=== PATIENT | female | born 1970 | race Caucasian/White ===

== ENCOUNTER 2016-06-22 10:29 | Observation (INO) | payer SELFPAY ==
[2016-06-22] MEDS ORDERED: NORMAL SALINE 10 ML SYRINGE FLUSH IVP PRN ×2 (10:45→13:51)
[2016-06-22] MEDS ORDERED: Sodium Chloride 0.9% 1,000 ML PRIMARY IV ONE (10:45)
[2016-06-22] MEDS ORDERED: ASPIRIN 81 MG (BABY) CHEWABLE TABLET PO ONE (10:45)
--- NOTE | 2016-06-22 10:48 | EKG ---
[address] [address] Measurements Intervals [place] Rate: 79 P: 47 GA: 146 QRS: 38 QRSD: 80 T: 42 QT: 373 QTc: 407 Interpretive Statements SINUS RHYTHM Compared to ECG 02/19/2015 14:36:40 No significant changes Electronically Signed On 06-22-16 11:05:34 MDT by Patricio De La O MD [email or web address]
--- NOTE | 2016-06-22 11:25 | DI ---
AP CHEST X-RAY, 06/22/2016 10:45 AM : Clinical History: Chest pain. Previous Exam: 11/25/2015. There is no acute soft tissue or bony abnormality. Heart size is normal. Lungs are clear. Mediastinal structures are normal. There are no pulmonary nodules. Reading: Normal chest x-ray. There has been no change.
[2016-06-22 11:36] LABS: HEMATOCRIT 41.4 % (37.0-47.0); HEMOGLOBIN 13.9 g/dL (12.0-16.0); MEAN CORPUSCULAR HEMOGLOBIN 28.8 PG (27-31); MEAN CORPUSCULAR HGB CONC 33.6 g/dL (33-37); MEAN CORPUSCULAR VOLUME 85.9 FL (81-99); RED BLOOD COUNT 4.82 10^6/uL (4.20-5.40)
[2016-06-22 11:37] LABS: BASOPHILS # (AUTO) 0.02 10*3/UL; BASOPHILS % (AUTO) 0.4 % (0-1); EOSINOPHILS # (AUTO) 0.13 10*3/UL; EOSINOPHILS % (AUTO) 2.5 % (0-8); LYMPHOCYTES # (AUTO) 1.94 10*3/uL; MEAN PLATELET VOLUME 8.6 FL (7.4-12.2); MONOCYTES # (AUTO) 0.39 10*3/UL (0.3-0.8); MONOCYTES % (AUTO) 7.5 % (5-15); NEUTROPHILS # (AUTO) 2.69 10*3/UL; NEUTROPHILS % (AUTO) 51.9 % (50-80); PLATELET MORPHOLOGY COMMENT NORMAL MORPHOLOGY (NORM); RBC MORPHOLOGY COMMENT NORMAL MORPHOLOGY (NORM); WBC MORPHOLOGY COMMENT NORMAL MORPHOLOGY (NORM)
[2016-06-22 11:47] LABS: BLOOD UREA NITROGEN 15 mg/dL (7-22); BUN/CREATININE RATIO 18.75 (6-20); CALCIUM 8.9 mg/dL (8.7-10.7); EST GLOMERULAR FILTRATION > 60 (>60 ml/min/1.73m(2)); SERUM ALBUMIN 4.3 g/dL (3.5-4.8)
[2016-06-22 11:53] LABS: TROPONIN I < 0.012 ng/mL (< 0.040)
[2016-06-22] MEDS ORDERED: NITROGLYCERIN 0.4 MG SL ONE (12:32)
[2016-06-22] MEDS ORDERED: NITROGLYCERIN 0.4 MG SL TAB (BOTTLE OF 3) SL ONE (12:37)
[2016-06-22] MEDS ORDERED: MORPHINE SULFATE 4 MG/1 ML IVP ONE (12:39)
[2016-06-22] MEDS ORDERED: LIDOCAINE W/ SODIUM BICARB 0.5 ML SYR SUBD PRN (13:51)
--- NOTE | 2016-06-22 14:32 | PDOC ---
History and Physical - History of Present Illness Date and Time of Service: 06/22/2016 1:30 PM Chief Complaint: Chest pain that started last night History of Present Illness: This is a 45 years old female with medical history significant for history of lupus, arrhythmia unknown type on diltiazem who presented to the ER with history of chest pain that started last night felt in the middle of the chest and towards the left side, mild nausea and no shortness of breath. She said her symptoms started last night and this morning the pain persisted so she checked her blood pressure and blood pressure was elevated with diastolic at 104 and because of that she came into the ER she was given nitroglycerin in the ER and that helped her pain but she started to have headache so she was given morphine which helped her headache and she was admitted for further testing. She said she never had this chest pain before. 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 Regarding the lupus her main symptoms sounded more like to be pain in the joint and swelling but there was no rash or other general organ involvement. Past Medical History Medical History: 1. Questionable lupus, sounds more like fibromyalgia. 2. Arrhythmia nontype on diltiazem. 3. History of asthma Surgical History: 1. Cholecystectomy. 2. Hysterectomy Pertinent Family History: Father had the defibrillator/pacemaker Past Social History: Used to smoke, occasionally drink, no drugs. She is under a lot of stress, as she lost her daughter to diabetes are March and she is going to nursing school. Tobacco Use: Former Smoker Substance Use Type: None Alcohol Use: Occasionally Medication / Allergies Home Medications: Home Medications Medication Instructions Recorded Confirmed Type Albuterol Neb Soln 0.083% 1 each NEB Q4-6H PRN #1 box 05/31/14 06/22/16 Clinic Amitriptyline HCl 1 tab PO QHS #90 tab 12/02/15 06/22/16 Clinic Diltiazem HCl [Diltiazem 24hr Er] 120 mg PO QHS #90 cap 12/02/15 06/22/16 Clinic Ibuprofen 800 mg PO TID #90 tab 12/02/15 06/22/16 Clinic Montelukast Sodium [Singulair] 10 mg ORAL QD #90 tab 12/02/15 06/22/16 Clinic Topiramate [Topamax] 1 tab PO QHS #90 tab 12/02/15 06/22/16 Clinic Escitalopram Oxalate [Lexapro] 1 tab PO DAILY #35 tab 06/08/16 06/22/16 Clinic Allergies/Adverse Reactions: Allergies Allergy/AdvReac Type Severity Reaction Status Date / Time codeine Allergy Intermediate ITCHING Verified 06/22/16 10:43 SEASONAL ALLERGIES AdvReac Intermediate NOT Uncoded 06/22/16 10:43 APPLICABLE Review of Systems - Review of Systems All Systems: Reviewed & No Additional Complaints Except as Stated Exam - Vitals Vital Signs: Vital Signs Temperature 98.2 F Temperature Source Temporal Artery Scan Pulse Rate [Telemetry] 78 Respiratory Rate 20 Blood Pressure [Right Arm] 123/78 Pulse Ox 99 Oxygen Delivery Method Room Air Height 5 ft 7 in Weight 164 lb 9.6 oz - General General Appearance: POSITIVE: Cooperative - Head Head Exam: POSITIVE: Normal Inspection - Eye Eye Exam: POSITIVE: Normal Appearance - ENT ENT Exam: POSITIVE: Normal Exam - Neck Neck Exam: POSITIVE: Normal Inspection - Respiratory Respiratory Exam: POSITIVE: Clear to Auscultation - Bilaterally - Cardiovascular Cardiovascular Exam: POSITIVE: RRR - GI/Abdominal GI/Abdominal Exam: POSITIVE: Normal Bowel Sounds, Non Tender, Non Distended, Soft - Rectal Rectal Exam: POSITIVE: Deferred - External Exam: POSITIVE: Deferred Exam: POSITIVE: Deferred - Extremities Extremities Exam: POSITIVE: Normal Inspection - Back Back Exam: POSITIVE: Normal Inspection - Neurological Neurological Exam: POSITIVE: Alert, Reflexes Normal, CN II-XII Intact, Moves All Extremities Equally - Psychiatric Psychiatric Exam: POSITIVE: Anxious - Integumentary Integumentary Exam: POSITIVE: Normal Color Results - Labs CBC and BMP: 06/22/16 11:27 06/22/16 11:27 - EKG Data -: EKG Interpreted by Me Rate: Normal - EKG Data When Compared to Previous EKG(s) There Are: No Significant Change - Imaging Status: Report Reviewed by Me (Negative chest x-ray) Assessment and Plan - Patient Problems (1) Chest pain Current Visit: Yes Status: Acute Comment: Atypical pain, probably more anxiety induced, she was recently started on Lexapro which was started at 5 mg I told her I'll increase the dose to 10 mg we'll add Xanax as needed. However we will rule her out with repeat enzymes and ordering a Cardiolite stress test for her to complete the workup. Continue aspirin. (2) History of cardiac arrhythmia Current Visit: Yes Status: Acute Comment: Unknown type, she's on Cardizem but since we will do the stress test I' ll hold her Cardizem for now Photo / Body Diagrams - Uploaded Photos Uploaded Photos:
[2016-06-22] MEDS ORDERED: Metoclopramide Tab 10 MG TAB PO PRN (15:26)
[2016-06-22] MEDS: ALPRAZolam Tab 0.25 MG TABLET PO PRN ×2 (15:31→21:11)
--- NOTE | 2016-06-22 15:56 | PDOC ---
Chest Pain HPI - General Chief Complaint: Chest Pain Stated Complaint: CHEST PAIN Date Seen by Provider: 06/22/16 Time Seen by Provider: 10:33 Source: Patient Exam Limitations: POSITIVE: No limitations Treatment Prior to Arrival: REPORTS: None Nurse's Notes Reviewed & Considered: Yes - History of Present Illness Initial Comments: The patient is a 45 year old female. She states that around 9 PM last night, approximately 13 hours [employer]ESSING [employer], she developed some left-sided chest pain with some radiation into her left axilla and left side of the neck. She describes the pain as being "below and behind the left breast". She describes the character of the pain as an "ache and throbbing "and somewhat increased by deep inspiration. She does describe some tenderness on palpation below the left breast. No dyspnea. No history of cardiac disease, except that she does states she has been described with an "arrhythmia"for which she takes diltiazem ex are. Patient has been under considerable stress lately due to the of her adult daughter in March 2015. Patient is also attending nursing school and she has found this somewhat stressful. 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 Body Location Affected: REPORTS: Chest Timing: REPORTS: Abrupt, Intermittent Duration: <24 hours (12-1/2 hours; worse over the past few hours.) Severity: Moderate Persistent/Worse since (date): 06/21/16 Persistent/Worse since (time): 21:00 Context: REPORTS: Rest Quality: REPORTS: Aching, Other (Throbbing) Radiation: REPORTS: Neck (L), See Diagram, Other (Left axilla) Associated Symptoms: REPORTS: Nausea, Hurts to Breathe (Somewhat). DENIES: Vomiting, Diaphoresis, Shortness of Breath, Palpitations, Productive Cough ( blood), Productive Cough (sputum), Weakness, Dizziness Modifying Factors: improves with: Deep breathing Similar Symptoms Previously: No Recently seen/treated/hospitalized: No Any Prior Injuries Related to Current Complaint?: No - Patient Home Medications Home Medications: Home Medications Albuterol Neb Soln 0.083% 1 each NEB Q4-6H PRN #1 box 05/31/14 Amitriptyline HCl 1 tab PO QHS #90 tab 12/02/15 Diltiazem HCl [Diltiazem 24hr Er] 120 mg PO QHS #90 cap 12/02/15 Ibuprofen 800 mg PO TID #90 tab 12/02/15 Montelukast Sodium [Singulair] 10 mg ORAL QD #90 tab 12/02/15 Topiramate [Topamax] 1 tab PO QHS #90 tab 12/02/15 Escitalopram Oxalate [Lexapro] 1 tab PO DAILY #35 tab 06/08/16 - Patient Allergies Allergies/Adverse Reactions: Allergies Allergy/AdvReac Type Severity Reaction Status Date / Time codeine Allergy Intermediate ITCHING Verified 06/22/16 10:43 SEASONAL ALLERGIES AdvReac Intermediate NOT Uncoded 06/22/16 10:43 APPLICABLE Past Medical History - heen HEENT History: Other (please comment) Additional HEENT History: WEARS GLASSES Cardiovascular History: Arrhythmia Respiratory History: Asthma Additional Respiratory History: environmental allergies Gastrointestinal History: Denies History Genitourinary History: Denies History Endocrine History: Lupus Musculoskeletal History: Denies History Prosthesis or Implant: No Additional Musculoskeletal History: LUPUS Neurological History: Migraines, Motion Sickness Blood Disorders: Denies History Psychiatric History: Depression, Other (please comment) Additional Psychiatric History: recent of daughter History of Sexually Transmitted Diseases: No Female Reproductive History: Hysterectomy Additional Female Reproductive History: COMPLETE HYSTERECTOMY, TUBAL LIGATION Cancer History: Denies History In Past Year Been Physically Harmed or Verbally Threatened: No (PER PATIENT) History of MDRO: No History of Other Communicable Diseases: No Tobacco Use: Former Smoker Alcohol Use: Occasionally Substance Use Type: None Previous Surgical History: Yes Type / Date of Surgery: TUBAL LIGATION, CIRCLAGE X2, CHOLECYSTECTMY, T&A, L FOOT SURGERY, L KNEE SURGERY, LEEP PROCEDURE x2 Anesthesia Reactions: No Malignant Hyperthermia: No Family History of Malignant Hyperthermia: No Significant Family History: No pertinent family hx Past Medical History Reviewed: Reviewed - No Changes ROS - Limitations ROS Limitations: No Limitations Constitution: REPORTS: Denies Symptoms Cardiovascular: REPORTS: Chest Pain Respiratory: REPORTS: Denies Resp Symptoms, Hurts To Breathe (Mildly) Neurological: REPORTS: Denies Neuro Symptoms Gastrointestinal: REPORTS: Denies GI Symptoms Endocrine: REPORTS: Denies Symptoms Musculoskeletal: REPORTS: Denies MS Symptoms Genitourinary: REPORTS: Denies Symptoms Eyes: REPORTS: Denies Symptoms ENT: REPORTS: Denies Symptoms Skin: REPORTS: Denies Skin Symptoms Lympathic: REPORTS: Denies Lympathic Symptoms Immunologic: POSITIVE: Denies Symptoms Psychiatric: POSITIVE: Anxiety (Has been under stress lately due to of her adult daughter in March. 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 Nml, Pharynx Inspect. Nml, PERRL, EOMI - Neck Neck: REPORTS: Normal Inspection, No Carotid Bruit - Respiratory Respiratory: REPORTS: No Respiratory Distress, Breath Sounds Normal. DENIES: Chest Non-Tender (Some mild tenderness on direct palpation under her left breast ) - Cardiovascular Cardiovascular: REPORTS: Regular Rate and Rhythm, Heart Sounds Normal, Equal Pulses, Strong Pulses, No Murmur, No Gallop, No Friction Rub, No JVD Peripheral Pulses: Radial (R): 2+, Radial (L): 2+ - Abdomen Abdomen: Soft: (All Quadrants), Normal Bowel Sounds: (All Quadrants), Denies Tenderness: (All Quadrants), No Splenomegaly: (All Quadrants), No Hepatomegaly: (All Quadrants), No Guarding: (All Quadrants), No Rebound: (All Quadrants), No Palpable Pulse: (All Quadrants), No Palpabale Mass: (All Quadrants), No Distention: (All Quadrants), No Rigidity: (All Quadrants) - Skin Skin: REPORTS: Intact, Normal For Race, Warm, Dry, No Rash - Extremities Extremity: Non-Tender: (All Extremities), Normal ROM: (All Extremities), Normal Inspection: (All Extremities) - Neurological / Psychological Neurological: 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, 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 As Tested, Motor Normal, Sensation Normal, 5, 6 Images - Complete Complete: 1 - Area of discomfort/pain 2 - Radiation into neck 3 - Radiation into the left axilla Chest Pain Progress - Results Reviewed by me Xrays/CTs/US Reviewed by me: Yes Discussed with Radiologist: Yes Radiology Findings: Portable chest x-ray normal Lab Results Reviewed: Yes (cardiac enzymes and d-dimer are normal) Lab Results:: Laboratory Results 06/22/16 Range/Units 11:27 WBC 5.18 (4.8-10.8) 10^3/uL RBC 4.82 (4.20-5.40) 10^6/uL Hgb 13.9 (12.0-16.0) g/dL Hct 41.4 (37.0-47.0) % MCV 85.9 (81-99) FL MCH 28.8 (27-31) PG MCHC 33.6 (33-37) g/dL RDW Std Deviation 39.7 (39-50) fL RDW Coeff of Sarita 13.0 (11.5-14.5) % Plt Count 249 (140-350) 10*3/uL MPV 8.6 (7.4-12.2) FL Immature Gran % (Auto) 0.2 (0-5) % Neut % (Auto) 51.9 (50-80) % Lymph % (Auto) 37.5 (10-50) % Faulkner % (Auto) 7.5 (5-15) % Eos % (Auto) 2.5 (0-8) % Baso % (Auto) 0.4 (0-1) % Immature Gran # (Auto) 0.01 10*3/UL Neut # (Auto) 2.69 10*3/UL Lymph # (Auto) 1.94 10*3/uL Faulkner # (Auto) 0.39 (0.3-0.8) 10*3/UL Eos # (Auto) 0.13 10*3/UL Baso # (Auto) 0.02 10*3/UL WBC Morphology Comment Normal morphology (NORM) Plt Morphology Comment Normal morphology (NORM) RBC Morph Comment Normal morphology (NORM) D-Dimer 0.29 (0.00-0.59) mg/L Sodium 139 (135-145) meq/L Potassium 4.7 (3.8-5.2) meq/L Chloride 109 (98-112) meq/L Carbon Dioxide 18 L (23-33) meq/L Anion Gap 12 (5-20) BUN 15 (7-22) mg/dL Creatinine 0.8 (0.50-1.20) mg/dL Estimated GFR > 60 (>60 ml/min/1.73m(2)) BUN/Creatinine Ratio 18.75 (6-20) Glucose 82 (78-110) mg/dL Calculated Osmolality 287.0 (267-292) mOsm/kg Calcium 8.9 (8.7-10.7) mg/dL Total Bilirubin 1.4 H (0.3-1.2) mg/dL AST 33 (8-39) IU/L ALT 34 (9-52) IU/L Alkaline Phosphatase 99 (38-126) IU/L CK-MB (CK-2) 0.50 (0.00-5.00) NG/ML Troponin I < 0.012 (< 0.040) ng/mL Total Protein 7.7 (6.1-8.0) g/dL Albumin 4.3 (3.5-4.8) g/dL Globulin 3.4 (2.50-4.10) g/dL Albumin/Globulin Ratio 1.20 L (1.3-2.0) mg/g EKG Interpreted/Reviewed By Me:: Yes EKG Interpretation:: POSITIVE: Normal Sinus Rhythm, Normal Rate, Normal Intervals, Normal [place], Normal QRS, Normal ST/T. NEGATIVE: Abnormal EKG - Patient's Progress Pain Medication Addressed: POSITIVE: Yes (Patient given nitroglycerin 0.4 mg sublingual with no effect with this did produce a headache. Patient then given 4 mg of morphine sulfate with relief of her headache and her chest pain.) School/Work Release Addressed: POSITIVE: Not Applicable Re-Examine Time: 12:15 Status: POSITIVE: Improved, Re-Examined Quality Measure Initiative: CP/AMI: POSITIVE: EKG, ASA - Consult Consult (If Yes, Name of Consulting MD & Time Called): Yes (Dr. Wang, hospitalist, [id number]) Consulting MD will see pt:: POSITIVE: [facility] [place] Admit Counseled: POSITIVE: Patient, RE: Lab Results, RE: Radiology Results, RE: DX, RE : Need for F/U Patient Care Time - Estimated PCT Patient Care Time (In Minutes): 55 Vital Signs - Recent Vital Signs Vital Signs: Vital Signs (Last 8 hours) Temp Pulse Pulse Resp BP Pulse Ox 06/22/16 10:34 79 06/22/16 10:29 97.6 F 80 80 17 126/101 96 - VS Reviewed Vital Signs Reviewed: Yes Discharge Clinical Impression: Chest pain Discharge Disposition: Admit to Inpatient Condition: Fair Date Decision to Admit to Inpatient: 06/22/16 Time Decision to Admit to Inpatient: 12:00
[2016-06-22] MEDS ORDERED: AMITRIPTYLINE HCL PO SCH (21:00)
[2016-06-22] MEDS: PANTOPRAZOLE 40 MG TABLET PO SCH (21:11)
[2016-06-23] MEDS ORDERED: ESCITALOPRAM 10 MG TABLET PO SCH (07:00)
--- NOTE | 2016-06-23 08:04 | PDOC(PROG) ---
Date and Time of Service: 06/23/2016 8:05 AM Interval History: Subjective Patient feels better, chest pain resolved. Objective : Data - Labs CBC and BMP: 06/22/16 11:27 06/22/16 11:27 Labs - Last 24 Hours: Laboratory Results 06/22/16 06/22/16 Range/Units 17:23 23:19 Total Creatine Kinase 44 40 (30-135) IU/L Troponin I < 0.012 < 0.012 (< 0.040) ng/mL Objective : Exam - General General Appearance: No Acute Distress, Cooperative - Head Head Exam: Normal Inspection, Atraumatic - Eye Eye Exam: Normal Appearance - ENT ENT Exam: Normal Exam - Neck Neck Exam: Normal Inspection - Respiratory Respiratory Exam: Clear to Auscultation - Bilaterally - Cardiovascular Cardiovascular Exam: RRR - GI/Abdominal GI/Abdominal Exam: Normal Bowel Sounds, Non Tender, Non Distended, Soft - Rectal Rectal Exam: Deferred - External Exam: Deferred - Extremities Extremities Exam: Normal Inspection - Back Back Exam: Normal Inspection - Neurological Neurological Exam: Alert, Oriented x 3, CN II-XII Intact, Moves All Extremities Equally - Psychiatric Psychiatric Exam: Normal Affect - Integumentary Integumentary Exam: Normal Color Assessment and Plan - Patient Problems (1) Chest pain Current Visit: Yes Status: Acute Comment: Enzymes are negative, we did the first part of the Cardiolite stress test which was negative, no ST changes noted waiting for the nuclear scan. If negative we'll discharge her home today. Possibly related to anxiety we already increase the dosage of the Lexapro to 10 mg a day. (2) History of cardiac arrhythmia Current Visit: Yes Status: Acute Comment: We've held the Cardizem last night because of the stress test she can resume tonight. Photo / Body Diagrams - Uploaded Photos Uploaded Photos:
[2016-06-23 08:07] VITALS: RESP 16
[2016-06-23] MEDS: PANTOPRAZOLE 40 MG TABLET PO SCH (08:09)
--- NOTE | 2016-06-23 08:33 | STRESSTEST ---
[facility] [place] Interpretive Statements Patient exercised according to Berto protocol for 9.21 min , her baseline BP was 124/82, heart rate was 75 baseline, baseline EKG showed possible early reporization, Maximum heart rate was 151 which is 85% of the predicted, Maximum BP was 162/94, Mets 10.2. No significant EKG changes noted. Once patient reached her target heart rate she was injected with cardiolyte and exercised more than a min. post injection, The test was stopped because of fatigue. No chest pian., Conclusion Negative stress test. await nuclear scan results. [email or web address]
[2016-06-23] MEDS ORDERED: ASPIRIN 325 MG TABLET PO SCH (09:00)
[2016-06-23] MEDS ORDERED: Montelukast Tab 10 MG TAB PO SCH (09:00)
--- NOTE | 2016-06-23 12:58 | DI ---
2 DAY REINA STRESS & REST MYOCARDIAL PERFUSION SCANS, 06/22/2016-06/23/2016: Clinical History: Chest pain. Previous Exam: None at this facility. Monitoring Physician: Dr. Yang Wang. Dose: Stress dose: 36 mCi on 06/23/2016. Rest dose: 35 mCi on 06/22/2016. Quantitative Analysis: [employer] program with low dose limited CT chest scan attenuation correctio n. Exam Quality: Excellent. Rejected Beats: Stress = 0%; Rest = 0%. HR: Stress = 65-76 b/m; Rest = 71-7 9 b/m. Left ventricular chamber sizes are normal at stress and rest. Transient ischemic dilatation ratio is 0.89 (normal Reina TID <= 1.22; normal Lexiscan TID <= 1.33). Stress LVEF: 86%; rest LVEF: 91%. Stres s and rest myocardial perfusion images without and with attenuation correction are normal. Stress and rest wall motion and myocardial thickening are normal. Limited CT scans of the heart show no coronar y artery calcifications. There are no lung nodules or enlarged nodes. There is a focal area of low de nsity in the left lobe of the liver that measures 25 mm in diameter by approximately 40 mm in length. Followup with a three-phase CT scan of the abdomen and pelvis is recommended. Readin. Normal stress and rest left ventricular chamber size. Transient ischemic dilatation ratio is norm al at 0.89. 2. Normal stress and rest LVEF values of 86%, and 91%, respectively. 3. Normal stress and rest myocardial perfusion, wall motion, and thickening. 4. No coronary artery calcifications or lung nodules or adenopathy findings are noted. 5. There is a roughly 25 x 25 x 40 mm low-density area in the left lobe of the liver. Followup with a three-phase CT scan of the abdomen and pelvis is recommended for further evaluation.
[2016-06-23 13:05] VITALS: TEMP 97.8
--- NOTE | 2016-06-23 15:39 | DCSUMMARY ---
Hospitalization Summary Admit Date: 06/22/16 Discharge Date: 06/23/16 Hospital Course: Discharge diagnoses 1. Episode of chest pain resolved, enzymes negative stress test negative 2. Large left lobe cavernous hemangioma 3. Depression/anxiety 4. Questionable history of lupus 5. Asthma 6. History of arrhythmia unknown type Hospital course This is a 45 years old female with medical history significant for history of arrhythmia unknown type, questionable history of lupus who came into with hospital history of chest pain that started the night before admission felt in the middle the chest and with mild nausea and no shortness of breath. The pain persisted the morning of admission and she checked her blood pressure at home and blood pressure was elevated with diastolic at 104 and because of that she came into the ER she was given nitroglycerin in the ER and that helped her pain but started to have headaches so she was given morphine and she was admitted. Exam when I saw her she seemed anxious but the rest of exam was not remarkable. 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 Her EKG was negative and we repeated her enzymes and they remained negative we did a stress test which was negative. However there was a hypodensity in the liver was seen on the nuclear scan so we did a CT of the liver and that showed per my discussion with Dr. Ro very large cavernous hemangioma nearly involving the left lobe of the liver. Because of that I did speak with the hepatic surgeon in [place] he said he will see her as an outpatient but most of the time its symptomatic treatment. I did discuss that with the patient will give her a CD of the CT and she will follow-up with him as an outpatient. Once I told her about the finding she remembered that 13 years ago she had a cholecystectomy and they told her that she had a hemangioma. I think what brought her to the hospital though is mainly anxiety/depression so we increased the dosage of Lexapro to 10 mg a day gave her few pills of Xanax to be used as needed in case she has worsening symptoms. She will follow-up also with her PCP as an outpatient Laboratory Results 06/22/16 06/22/16 06/22/16 Range/Units 11:27 17:23 23:19 WBC 5.18 (4.8-10.8) 10^3/uL RBC 4.82 (4.20-5.40) 10^6/uL Hgb 13.9 (12.0-16.0) g/dL Hct 41.4 (37.0-47.0) % MCV 85.9 (81-99) FL MCH 28.8 (27-31) PG MCHC 33.6 (33-37) g/dL RDW Std Deviation 39.7 (39-50) fL RDW Coeff of Sarita 13.0 (11.5-14.5) % Plt Count 249 (140-350) 10*3/uL MPV 8.6 (7.4-12.2) FL Immature Gran % (Auto) 0.2 (0-5) % Neut % (Auto) 51.9 (50-80) % Lymph % (Auto) 37.5 (10-50) % [place] % (Auto) 7.5 (5-15) % Eos % (Auto) 2.5 (0-8) % Baso % (Auto) 0.4 (0-1) % Immature Gran # (Auto) 0.01 10*3/UL Neut # (Auto) 2.69 10*3/UL Lymph # (Auto) 1.94 10*3/uL [place] # (Auto) 0.39 (0.3-0.8) 10*3/UL Eos # (Auto) 0.13 10*3/UL Baso # (Auto) 0.02 10*3/UL WBC Morphology Comment Normal morphology (NORM) Plt Morphology Comment Normal morphology (NORM) RBC Morph Comment Normal morphology (NORM) D-Dimer 0.29 (0.00-0.59) mg/L Sodium 139 (135-145) meq/L Potassium 4.7 (3.8-5.2) meq/L Chloride 109 (98-112) meq/L Carbon Dioxide 18 L (23-33) meq/L Anion Gap 12 (5-20) BUN 15 (7-22) mg/dL Creatinine 0.8 (0.50-1.20) mg/dL Estimated GFR > 60 (>60 ml/min/1.73m(2)) BUN/Creatinine Ratio 18.75 (6-20) Glucose 82 (78-110) mg/dL Calculated Osmolality 287.0 (267-292) mOsm/kg Calcium 8.9 (8.7-10.7) mg/dL Total Bilirubin 1.4 H (0.3-1.2) mg/dL AST 33 (8-39) IU/L ALT 34 (9-52) IU/L Alkaline Phosphatase 99 (38-126) IU/L Total Creatine Kinase 44 40 (30-135) IU/L CK-MB (CK-2) 0.50 (0.00-5.00) NG/ML Troponin I < 0.012 < 0.012 < 0.012 (< 0.040) ng/mL Total Protein 7.7 (6.1-8.0) g/dL Albumin 4.3 (3.5-4.8) g/dL Globulin 3.4 (2.50-4.10) g/dL Albumin/Globulin Ratio 1.20 L (1.3-2.0) mg/g Discharge instruction Diet regular Activity as started Medications Home Medications Medication Instructions Recorded Confirmed Type Albuterol Neb Soln 0.083% 1 each NEB Q4-6H PRN #1 box 05/31/14 06/22/16 Clinic Amitriptyline HCl 1 tab PO QHS #90 tab 12/02/15 06/22/16 Clinic Diltiazem HCl [Diltiazem 24Hr ER] 120 mg PO QHS #90 cap 12/02/15 06/22/16 Clinic Montelukast Sodium [Singulair] 10 mg ORAL QD #90 tab 12/02/15 06/22/16 Clinic Escitalopram Oxalate [Lexapro] 1 tab PO DAILY #35 tab 06/08/16 06/22/16 Clinic ALPRAZolam Tab [Xanax Tab] 0.25 mg PO BID PRN #10 tab 06/23/16 Rx Follow-up with PCP in 1-2 weeks, with the surgeon in [place] as scheduled Condition at discharge was stable for discharge Exam - Vitals Vital Signs: Vital Signs Temperature 97.8 F Temperature Source Temporal Artery Scan Pulse Rate [Apical] 78 Pulse Rate [Pulse Oximeter] 77 Pulse Rate [Telemetry] 78 Pulse Rate 77 Respiratory Rate 16 Blood Pressure [Left Arm] 97/51 Blood Pressure [Right Arm] 134/90 Pulse Ox 99 Oxygen Delivery Method Room Air Height 5 ft 7 in Weight 164 lb 9.6 oz Patient Problems - Patient Problem List (1) Chest pain Status: Acute (2) History of cardiac arrhythmia Status: Acute
--- NOTE | 2016-06-23 19:54 | DI ---
CT ABDOMEN SCAN WITHOUT AND WITH IV CONTRAST, 06/23/2016 1:16 PM : Clinical History: Abnormal CT scan of the liver revealed a low-density lesion in the left lobe of the liver. The CT scans were part of the [facility] nuclear medicine heart scan with CT attenuation michael ection. Previous Exam: 11/08/2014. This was a non-IV contrast enhanced scan. Scans are performed from the lower lung bases through the liver and kidneys without and with IV contr ast. Sagittal and coronal reformatted images are generated. 95 ml of Isovue 300 was injected IV. The lung bases are clear. On the noncontrast scans, almost the entire left lobe is a lower density th an the right lobe, and toward the medial and posterior aspect of the left lobe, the density of the li alli is even lower than the surrounding left lobe parenchyma. With IV contrast during the arterial pha se, the perimeter of the low-density lesion in the left lobe shows enhancement. During the portal yrn ous phase, more vascular channels are visualized in the perimeter of the lesion and vascular channels are also present in the deeper portions of the left lobe. The delayed excretory phase scans obtained at 3 minutes postinjection show progressive enhancement of the left lobe parenchyma primarily in the anterior half were the majority of the vessels were visualized. The lowest density area seen on the noncontrast scans continues to remain of low density without enhancement. The pattern is consistent w ith a cavernous hemangioma with the very lowest density portion of the lesion probably consistent wit h avascular tissue that is interspersed with fatty tissue. Therefore this lesion can also represent a n angiolipoma. It measures approximately 50 x 95 x 100 mm in maximum AP, longitudinal, and transverse dimensions. The dimensions of this lesion have not changed from the previous study of 11/08/2014. No o ther lesion is seen in the liver. The patient is status post cholecystectomy. Both adrenal glands, th e pancreas, and the spleen are normal. Both kidneys are normal in size, shape, position and contour. There is no hydronephrosis or hydroureter. No renal or ureteral calculi are present. There are no abn ormal retrocrural or periaortic nodes. There is no ascites. READIN. Almost the entire left lobe of the liver consists of tissue that is of different low-density valu es. The lower density lesion probably represents some avascular fibrous tissue interspersed with fatt y tissue and this tissue does not enhance. The slightly higher low density area anteriorly is highly vascular. This lesion either represents a benign cavernous hemangioma interspersed with fatty tissue or it represents an angiolipoma. The lesion has not changed in size since the previous CT scan withou t IV contrast from 11/08/2014. The remainder of the liver is normal. 2. The remainder of the CT scan of the abdomen is normal.
== END 2016-06-23 14:55 | disposition home or self-care (01) ==
LOC: ER 10:29 → MED/SURG 12:35 → ER 13:00 → MED/SURG 16:10
PROVIDERS: ADMIT Internal Medicine; ATTEND Internal Medicine
DX: R07.9 Chest pain, unspecified (principal); D18.09 Hemangioma of other sites; F41.8 Other specified anxiety disorders; J45.909 Unspecified asthma, uncomplicated
CPT/HCPCS: 36415; 71010; 74170; 78452; 80053; 82550; 82553; 84484; 85025; 85379; 93005; 93010; 93016; 93017; 93018; 96374; 99284 ×2; A9500; J2270; J7030

== ENCOUNTER 2016-06-26 11:40 | Emergency (ER) | payer SELFPAY ==
--- NOTE | 2016-06-26 11:58 | PDOC ---
Lower Extremity Injury HPI - General Chief Complaint: Lower Extremity Problem/Injury Stated Complaint: large bruise behind left knee Date Seen by Provider: 06/26/16 Time Seen by Provider: 11:53 Source: POSITIVE: Patient Exam Limitations: POSITIVE: No limitations Nurse's Notes Reviewed & Considered: Yes - History of Present Illness Initial Comments: Patient comes in today with a chief complaint of bruising behind her left knee. 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 She developed bruising in her posterior left knee today. She was told by one of her nursing instructors that she needed be evaluated for the possibility of deep venous thrombosis. She denies any swelling of her lower extremities, no chest pain, no shortness of breath, no cough. She was recently hospitalized here at [place] for chest pain and had a cardiac workup which was normal. 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 She denies any history of trauma to her leg. She denies any fevers, no chills, no sweats. She denies any nausea vomiting or diarrhea. Have you received a tetanus shot in the past 10 years?: Yes Body Location Affected: REPORTS: Lower Extremity (L) Timing: REPORTS: Abrupt Duration: <24 hours Quality: REPORTS: "Pain", Other (Bruising) Location at Time of Onset: REPORTS: School Context of Injury: REPORTS: Other (history of trauma) Location of Injury: REPORTS: Knee (L) (Posterior left knee) Modifying Factors: improves with: Nothing Exacerbates Any Prior Injuries Related to Current Complaint?: No - Patient Home Medications Home Medications: Home Medications Albuterol Neb Soln 0.083% 1 each NEB Q4-6H PRN #1 box 05/31/14 Amitriptyline HCl 1 tab PO QHS #90 tab 12/02/15 Diltiazem HCl [Diltiazem 24Hr ER] 120 mg PO QHS #90 cap 12/02/15 Montelukast Sodium [Singulair] 10 mg ORAL QD #90 tab 12/02/15 Escitalopram Oxalate [Lexapro] 1 tab PO DAILY #35 tab 06/08/16 ALPRAZolam Tab [Xanax Tab] 0.25 mg PO BID PRN #10 tab 06/23/16 - Patient Allergies Allergies/Adverse Reactions: Allergies Allergy/AdvReac Type Severity Reaction Status Date / Time codeine Allergy Intermediate ITCHING Verified 06/26/16 11:51 SEASONAL ALLERGIES AdvReac Intermediate NOT Uncoded 06/23/16 06:30 APPLICABLE Past Medical History - heen HEENT History: Other (please comment) Additional HEENT History: WEARS GLASSES Cardiovascular History: Arrhythmia Respiratory History: Asthma Additional Respiratory History: environmental allergies Gastrointestinal History: Denies History Genitourinary History: Denies History Endocrine History: Lupus Musculoskeletal History: Denies History Prosthesis or Implant: No Additional Musculoskeletal History: LUPUS Neurological History: Migraines, Motion Sickness Blood Disorders: Denies History Psychiatric History: Depression, Other (please comment) Additional Psychiatric History: recent of daughter History of Sexually Transmitted Diseases: No Cancer History: Denies History History of MDRO: No History of Other Communicable Diseases: No Alcohol Use: Occasionally Substance Use Type: None Previous Surgical History: Yes Type / Date of Surgery: TUBAL LIGATION, CIRCLAGE X2, CHOLECYSTECTMY, T&A, L FOOT SURGERY, L KNEE SURGERY, LEEP PROCEDURE x2 Anesthesia Reactions: No Malignant Hyperthermia: No Significant Family History: No pertinent family hx ROS - Limitations ROS Limitations: No Limitations Constitution: REPORTS: Denies Symptoms Cardiovascular: REPORTS: Denies Cardiac Symptoms Respiratory: REPORTS: Denies Resp Symptoms Neurological: REPORTS: Denies Neuro Symptoms Gastrointestinal: REPORTS: Denies GI Symptoms Endocrine: REPORTS: Denies Symptoms Musculoskeletal: REPORTS: Other (Bruising popliteal space of left leg) Genitourinary: REPORTS: Denies Symptoms Eyes: REPORTS: Denies Symptoms ENT: REPORTS: Denies Symptoms Skin: REPORTS: Denies Skin Symptoms Lympathic: REPORTS: Denies Lympathic Symptoms Immunologic: POSITIVE: Denies Symptoms Psychiatric: POSITIVE: Denies Psych Symptoms Lower Ext Complaint Exam - General Appearance General Appearance: POSITIVE: Alert, Cooperative, No Acute Distress - Extremities Lower Extremity: POSITIVE: Normal Inspection, Normal ROM, Normal Temperature, Skin Intact, No Joint Swelling, No Evidence of Ischemia, Stable, Soft Tissue Tenderness (Mild soft tissue tenderness left popliteal space.), Ecchymosis ( Left popliteal space) Gait: POSITIVE: Normal Neurovascular/Tendon: POSITIVE: Sensation Normal, Motor Normal, No Vascular Compromise Skin: POSITIVE: Warm, Dry - HEENT HEENT: POSITIVE: Head Inspection Nml, Eyes Inspection Nml, Ears Inspection Nml, Nose Inspection Nml, PERRL, EOMI - Neck / Back Neck/Back: POSITIVE: Normal Inspection, Non-Tender, Painless ROM - Respiratory / CVS Respiratory / CVS: POSITIVE: Chest Non Tender, No Ecchymosis, Breath Sounds Normal, No Respiratory Distress, Heart Sounds Normal, Regular Rate/Rhythm Peripheral Pulses: Popliteal (R): 2+, Popliteal (L): 2+, Dorsalis-pedis (R): 2+ , Dorsalis-pedis (L): 2+ - Abdomen Abdomen: Soft: (All Quadrants), Normal Bowel Sounds: (All Quadrants), Denies Tenderness: (All Quadrants) Procedures - Laceration/Wound Repair Did patient have a laceration repair: No Lower Ext Complaint Progress - Results Reviewed by me Lab Results Reviewed: Yes Lab Results:: Laboratory Results 06/26/16 Range/Units 11:55 WBC 4.36 L (4.8-10.8) 10^3/uL RBC 4.37 (4.20-5.40) 10^6/uL Hgb 12.8 (12.0-16.0) g/dL Hct 37.9 (37.0-47.0) % MCV 86.7 (81-99) FL MCH 29.3 (27-31) PG MCHC 33.8 (33-37) g/dL RDW Std Deviation 40.2 (39-50) fL RDW Coeff of Sarita 13.0 (11.5-14.5) % Plt Count 229 (140-350) 10*3/uL MPV 8.5 (7.4-12.2) FL Immature Gran % (Auto) 0 (0-5) % Neut % (Auto) 52.3 (50-80) % Lymph % (Auto) 37.2 (10-50) % [place] % (Auto) 8.0 (5-15) % Eos % (Auto) 2.3 (0-8) % Baso % (Auto) 0.2 (0-1) % Immature Gran # (Auto) 0 10*3/UL Neut # (Auto) 2.28 10*3/UL Lymph # (Auto) 1.62 10*3/uL [place] # (Auto) 0.35 (0.3-0.8) 10*3/UL Eos # (Auto) 0.10 10*3/UL Baso # (Auto) 0.01 10*3/UL WBC Morphology Comment Normal morphology (NORM) Plt Morphology Comment Normal morphology (NORM) RBC Morph Comment Normal morphology (NORM) PT 10.4 (9.7-11.4) secs INR 1.01 (0.00-5.90) N/A - Patient's Progress Pain Medication Addressed: POSITIVE: No Re-Examine Time:: 13:09 Status: POSITIVE: Unchanged MDM / ED Course: Patient was evaluated, blood drawn and sent to the lab for studies. Findings: CBC is within normal limits, INR and PTT are within normal limits. Assessment: Bruising of the left lower extremity. Plan: Discharge home return to the emergency room if there is increased swelling , shortness of breath, chest pain, or other concerns. - Consult Counseled: POSITIVE: Patient, RE: Lab Results, RE: DX, RE: Need for F/U Patient Care Time - Estimated PCT Patient Care Time (In Minutes): 30 Vital Signs - Recent Vital Signs Vital Signs: Vital Signs (Last 8 hours) Temp Pulse Resp Pulse Ox 06/26/16 11:54 97.5 F 77 18 99 - VS Reviewed Vital Signs Reviewed: Yes Discharge Clinical Impression: Bruising Discharge Disposition: Discharged to Home Condition: Fair Patient Instructions Given at Discharge: Contusion in Adults (ED)
[2016-06-26 12:05] VITALS: RESP 18; TEMP 97.5
[2016-06-26 12:06] LABS: BASOPHILS # (AUTO) 0.01 10*3/UL; BASOPHILS % (AUTO) 0.2 % (0-1); EOSINOPHILS % (AUTO) 2.3 % (0-8); HEMATOCRIT 37.9 % (37.0-47.0); HEMOGLOBIN 12.8 g/dL (12.0-16.0); LYMPHOCYTES # (AUTO) 1.62 10*3/uL; MEAN CORPUSCULAR HEMOGLOBIN 29.3 PG (27-31); MEAN CORPUSCULAR HGB CONC 33.8 g/dL (33-37); MEAN CORPUSCULAR VOLUME 86.7 FL (81-99); MEAN PLATELET VOLUME 8.5 FL (7.4-12.2); MONOCYTES # (AUTO) 0.35 10*3/UL (0.3-0.8); NEUTROPHILS # (AUTO) 2.28 10*3/UL; NEUTROPHILS % (AUTO) 52.3 % (50-80); RED BLOOD COUNT 4.37 10^6/uL (4.20-5.40)
[2016-06-26 12:11] LABS: PLATELET MORPHOLOGY COMMENT NORMAL MORPHOLOGY (NORM); RBC MORPHOLOGY COMMENT NORMAL MORPHOLOGY (NORM); WBC MORPHOLOGY COMMENT NORMAL MORPHOLOGY (NORM)
== END 2016-06-26 13:15 | disposition home or self-care (01) ==
LOC: ER 11:40
DX: S80.02XA Contusion of left knee, initial encounter (principal)
CPT/HCPCS: 85025; 85610; 99282